=== PATIENT | female | born 1980 | race Caucasian/White ===

== ENCOUNTER → 2024-01-12 09:16 | Outpatient (REF) | payer OTHER, SELFPAY | LOC: HWRAD 09:16 | PROVIDERS: ATTENDING PHYSICIAN Internal Medicine Critical Care Medicine; FAMILY PHYSICIAN Family Medicine | DX: R09.89 Other specified symptoms and signs involving the circulatory and respiratory systems (principal) | CPT/HCPCS: 71275; Q9967 ==

== ENCOUNTER → 2024-03-26 14:53 | Outpatient (REF) | payer OTHER, SELFPAY | LOC: HWRAD 14:53 | PROVIDERS: ATTENDING PHYSICIAN Internal Medicine Critical Care Medicine; FAMILY PHYSICIAN Family Medicine | DX: R04.2 Hemoptysis (principal) | CPT/HCPCS: 71250 ==

== ENCOUNTER → 2024-12-15 13:21 | Outpatient (REF) | payer OTHER, SELFPAY | LOC: HWRAD 13:21 | PROVIDERS: ATTENDING PHYSICIAN Family Medicine; REFERRING PHYSICIAN Internal Medicine Critical Care Medicine | DX: R05.9 Cough, unspecified (principal) | CPT/HCPCS: 71046 ==

== ENCOUNTER → 2025-03-24 08:53 | Outpatient (REF) | payer OTHER, SELFPAY | LOC: HWRAD 08:53 | PROVIDERS: ATTENDING PHYSICIAN Internal Medicine Critical Care Medicine; FAMILY PHYSICIAN Family Medicine | DX: R91.1 Solitary pulmonary nodule (principal) | CPT/HCPCS: 71250 ==

== ENCOUNTER 2025-10-27 13:11 | Emergency (ER) | payer OTHER, SELFPAY ==
[2025-10-27] VITALS (8 sets, daily range): BP systolic 120–148; BP diastolic 76–94; BMI 30.1
[2025-10-27 13:47] LABS: Hematocrit 37.1 % (37.0-47.0); Hemoglobin 12.3 g/dL (12.0-16.0); Mean Corp Hgb Conc. 33.2 g/dL (33.0-37.0); Mean Corpuscular Volume 76.0 fL (81.0-99.0); Nucleated Red Blood Cells % 0 %; Platelet Count 227 10^3/uL (130-400); Red Cell Dist. Width 12.4 % (11.5-14.5)
[2025-10-27 13:59] LABS: HCG, Serum Qualitative Screen Negative
[2025-10-27 14:08] LABS: ALT (SGPT) 85 U/L (0-35); AST (SGOT) 45 U/L (14-36); Albumin 4.0 g/dl (3.5-5.0); Alkaline Phosphatase 55 U/L (38-126); Blood Urea Nitrogen 15 mg/dl (7-17); Calcium 9.0 mg/dl (8.4-10.2); Carbon Dioxide 22 mmol/L (22-30); Chloride 107 mmol/L (98-107); Glucose 117 mg/dl (70-99); Potassium 4.0 mmol/L (3.5-5.1); Sodium 136 mmol/L (135-145); Total Protein 6.9 g/dl (6.3-8.2); eGFR > 60.00
[2025-10-27 14:14] LABS: Troponin I < 0.012 ng/ml
[2025-10-27 14:30] LABS: TSH < 0.02 uIU/ml (0.47-4.68)
--- NOTE | 2025-10-27 15:57 | ED.GENMED ---
History of Present Illness
<Marianne Vo PA-C - Last Filed: 10/27/25 22:42>
General
Chief Complaint: Heart Rate Problem
Source: patient
Exam Limitations: none
Time Seen by Provider: 10/27/25 15:37
History of Present Illness
History of Present Illness:
45yoF with a history of PCOS, remote history of Graves' disease, and prothrombin gene mutation presenting for evaluation of ongoing headaches. Patient reports daily headaches over the past 3 weeks. Pain is located behind her right eye. Pain seems
to be worse at nighttime and she is also waking up in the morning with these headaches. She also reports intermittent sharp stabbing pains in her right jaw. She started to feel jittery yesterday as well. She has tried Tylenol, ibuprofen, wearing
a mouthguard, and increasing her water intake without any relief. Headache is currently rated as a 5/10 in severity. Patient was seen by her PCP today in the office. She was found to be tachycardic with heart rate in the 120s. She was sent to
the ED for concern for possible temporal arteritis. Patient denies any double vision or eye pain. She saw her retina specialist last month and had a normal dilated eye exam. She states it was hard to see the street signs yesterday while she was
driving but was previously told by her eye doctor that she needed reading glasses on top of her contact lenses.
Patient has a remote history of migraines in her 20s and was on Imitrex for about a year but has not had any issues with headaches since then. She was treated for Graves' disease symptoms in 2018 but medications were stopped after all her labs
normalized. She no longer sees an surgical instrument maker.
Phy Exam
<Marianne Vo PA-C - Last Filed: 10/27/25 22:42>
General Physical Exam
General Presentation: well appearing and no apparent distress
General Skin: warm and dry
General Habitus: normal
General Mental: alert
ENT Exam
ENT Exam: TM's normal, pharynx normal, neck supple and normocephalic
Additional ENT: No meningismus
Eye Exam
Eye Exam: PERRL, EOMI and conjunctiva normal
Cardiovascular Exam
Cardiovascular Exam: tachycardia
Pulmonary Exam
Pulmonary Exam: no respiratory distress
Neurological Exam
Neurological Exam: alert, no motor deficits and speech normal
Jitendra Coma Scale
Eye Opening: Spontaneous
Verbal Response: Oriented
Motor Response: Obeys Commands
GCS Total Score: 15
Skin Exam
Skin Exam: normal color and warm/dry
Psychiatric Exam
Psychiatric Exam: normal mood/affect
Course
<Marianne Vo PA-C - Last Filed: 10/27/25 22:42>
Orders/Labs/Results
Orders:
Orders
10/27/25 13:12
EKG [Electrocardiogram (*1)] Urgent
Reason for Study: Tachycardia
EKG- Treatment ONCE
10/27/25 13:27
Test Result ONCE
10/27/25 13:36
Complete Blood Count/With Diff Urgent
Comprehensive Metabolic Panel Urgent
Free T3 Urgent
Comment: ADD ON
Free T4 Urgent
Comment: ADD ON
HCG, Serum Qualitative Screen Urgent
Comment: Notify provider if positive test present
Sed Rate [Erythrocyte Sed Rate] Urgent
TSH Urgent
Troponin I Urgent
10/27/25 15:38
Add On- LAB Urgent
Tests Added?: free T3, free T4
Cardiac Monitoring- Treatment ONCE
10/27/25 16:24
CT Head W/o Iv Contrast Urgent
Comment:
Reason For Exam: new daily headache x 3 weeks
10/27/25 19:12
Methimazole [Tapazole] 10 mg PO NOW STA
Propranolol [Inderal] 20 mg PO NOW STA
Abnormal Lab Results
10/27/25
13:36
MCV 76.0 L fL
(81.0-99.0)
MCH 25.2 L pg
(27.0-31.0)
MPV 10.6 H fL
(7.4-10.4)
Absolute Monos (auto) 0.9 H 10^3/uL
(0.1-0.6)
Monocytes % 14.6 H %
(1.7-9.3)
Glucose 117 H mg/dl
(70-99)
AST 45 H U/L
(14-36)
ALT 85 H U/L
(0-35)
TSH < 0.02 L uIU/ml
(0.47-4.68)
Free T4 5.45 H ng/dl
(0.78-2.19)
Free T3 16.20 H pg/ml
(2.77-5.27)
10/27/25 13:36
10/27/25 13:36
Vital Signs
Initial and Last Documented VS:
Initial Vital Signs
Temp Pulse Resp BP Pulse Ox
98.2 F 122 16 131/94 96
10/27/25 13:19 10/27/25 13:19 10/27/25 13:19 10/27/25 13:19 10/27/25 13:19
Last Documented Vital Signs
Temp Pulse Resp BP Pulse Ox
98.5 F 128 14 130/92 97
10/27/25 15:46 10/27/25 19:30 10/27/25 19:00 10/27/25 19:30 10/27/25 18:45
Theresalt;Aron Vuong DO - Last Filed: 10/27/25 17:54>
Orders/Labs/Results
Orders:
Orders
10/27/25 13:12
EKG [Electrocardiogram (*1)] Urgent
Reason for Study: Tachycardia
EKG- Treatment ONCE
10/27/25 13:27
Test Result ONCE
10/27/25 13:36
Complete Blood Count/With Diff Urgent
Comprehensive Metabolic Panel Urgent
Free T3 Urgent
Comment: ADD ON
Free T4 Urgent
Comment: ADD ON
HCG, Serum Qualitative Screen Urgent
Comment: Notify provider if positive test present
Sed Rate [Erythrocyte Sed Rate] Urgent
TSH Urgent
Troponin I Urgent
10/27/25 15:38
Add On- LAB Urgent
Tests Added?: free T3, free T4
Cardiac Monitoring- Treatment ONCE
10/27/25 16:24
CT Head W/o Iv Contrast Urgent
Comment:
Reason For Exam: new daily headache x 3 weeks
10/27/25 19:12
Methimazole [Tapazole] 10 mg PO NOW STA
Propranolol [Inderal] 20 mg PO NOW STA
Abnormal Lab Results
10/27/25
13:36
MCV 76.0 L fL
(81.0-99.0)
MCH 25.2 L pg
(27.0-31.0)
MPV 10.6 H fL
(7.4-10.4)
Absolute Monos (auto) 0.9 H 10^3/uL
(0.1-0.6)
Monocytes % 14.6 H %
(1.7-9.3)
Glucose 117 H mg/dl
(70-99)
AST 45 H U/L
(14-36)
ALT 85 H U/L
(0-35)
TSH < 0.02 L uIU/ml
(0.47-4.68)
Free T4 5.45 H ng/dl
(0.78-2.19)
Free T3 16.20 H pg/ml
(2.77-5.27)
10/27/25 13:36
10/27/25 13:36
Vital Signs
Initial and Last Documented VS:
Initial Vital Signs
Temp Pulse Resp BP Pulse Ox
98.2 F 122 16 131/94 96
10/27/25 13:19 10/27/25 13:19 10/27/25 13:19 10/27/25 13:19 10/27/25 13:19
Last Documented Vital Signs
Temp Pulse Resp BP Pulse Ox
98.5 F 128 14 130/92 97
10/27/25 15:46 10/27/25 19:30 10/27/25 19:00 10/27/25 19:30 10/27/25 18:45
<Marianne Vo PA-C - Last Filed: 10/27/25 22:42>
MDM/Problems Addressed
Differential Diagnosis Includes:
45yoF presenting from PCP's office for new onset headaches x 3 weeks. Also noted to be tachycardic at her PCP appointment and feeling jittery. HR 122 in triage. Remainder of vitals normal. Patient well-appearing in no distress. Exam otherwise
reassuring. No meningismus or focal neurologic deficits. Differential diagnosis includes but is not limited to: Migraine, tension headache, intracranial mass, symptomatic hyperthyroidism, doubt temporal arteritis given age
Initial ED plan: Workup initiated in triage. TSH is less than 0.02. Remainder of labs unremarkable. ESR normal essentially ruling out temporal arteritis. EKG shows sinus tachycardia. Will check free T4/free T3 and head CT. Patient declined
analgesics.
<Marianne Vo PA-C - Last Filed: 10/27/25 22:42>
*Pulse Oximetry
SaO2: 97
Oxygen Mode of Delivery: Room air
Patient hypoxic: no
*EKG
Interpreted by ED Provider?: Yes
EKG Intrepretation Date: 10/27/25
Heart Rate: 124
Rate: tachycardiac
Rhythm: sinus
[place]: normal axis
Interval: normal interval
QRS Pattern: normal QRS
Ischemia: no ischemia
*Critical Care Note
Total Time (30-74mins, 75-104mins- exclusive of procedures): Not Applicable
<Marianne Vo PA-C - Last Filed: 10/27/25 22:42>
Update Note
Update Note:
Both free T4 and free T3 are significantly elevated. Head CT negative for acute findings. Patient persistently tachycardic with heart rates in the 120s throughout ED stay. BP and temperature is normal. No clinical signs of thyroid storm. Case
discussed with on-call surgical instrument maker who recommends initiating methimazole 10mg BID and a beta nik if needed. Given degree of tachycardia, she was also started on propranolol 20mg TID which may also help with her headaches. She was
instructed to follow-up closely with her PCP and endocrinology. Strict ED return precautions reviewed and she was discharged stable condition.
ED Attending Note
<Marianne Vo PA-C - Last Filed: 10/27/25 22:42>
-
Portions of this chart may have been created with voice recognition software.� Occasional wrong word or��sound alike� substitutions may have occurred due to the inherent limitations of voice recognition software.
<Aron Vuong DO - Last Filed: 10/27/25 17:54>
ED Attending Note
Patient seen and examined by attending physician: Yes
I performed the substantive portion of visit, reviewed & personally made and approve the management plan that is documented in note by myself or SELINA.: Yes
ED Attending Note:
I agree with Lisbeth's note.
45-year-old female presents complaining of headaches primarily. Patient has been having headaches for the past 3 weeks. Headache is frontal in nature. She has also been feeling somewhat jittery. She has a history of Graves' disease for which she
took medication in 2017 2018. Her labs improved and ultimately endocrinology decided to discontinue treatment. Her thyroid functions evidently remain normal and she was discharged from endocrinology. Patient denies any focal weakness numbness or
tingling. She denies any visual changes. She denies any nausea or vomiting.
Patient was noted to be quite tachycardic in triage.
General: Awake, Alert, Oriented X3. No acute distress.
Vitals: unremarkable
Head: Atraumatic
Eyes: Pupils equal, EOMI
Throat: Airway intact, no exudates
Neck: Trachea midline
Lungs: Clear and equal b/l
Heart: Tachycardic regular rate, no murmurs
Neuro: Nonfocal
Skin: Warm, dry, no rash
Extremities: pulses equal b/l, no edema
TSH is undetectable. T3 and T4 are quite high. Patient certainly meets criteria for hyperthyroidism. 90 will discuss specific dosages of propranolol and methimazole with endocrinology.
Discharge Plan
Departure
Patient Disposition: Home (Routine Discharge)
Date of Disposition: 10/27/25
Time of Disposition: 18:45
Patient with high blood pressure during this ER visit?: No
Discharge Problem:
New persistent daily headache, Hyperthyroidism
Instructions: Hyperthyroidism (overactive thyroid)
Prescriptions:
New
methimazole 10 mg tablet
10 mg PO BID Qty: 60 0RF
propranolol 20 mg tablet
20 mg PO TID 14 Days Qty: 42 0RF
No Action
omeprazole 20 mg Capsule,Delayed Release(Dr/Ec)
20 mg PO DAILY
aspirin 81 mg Tablet
81 mg PO DAILY
metformin 1,000 mg Tablet Extended Release 24 Hr
1,500 mg PO DAILY
Women's Daily Multivitamin 18-0.4 mg Tablet
1 tab PO DAILY
Zyrtec
10 mg PO DAILY
famotidine 10 mg Tablet
10 mg PO DAILY
Wegovy 2.4 mg/0.75 mL Pen Injector
2.4 mg SC QWEEK
Referrals:
Nusrat Navarro DO [Family Provider, Family Practice]
Leslie Leija MD [Consulting Staff, Endocrinology]
Abraham Herrera MD [Active, Neurology]
Activity Restrictions/Additional Instructions:
Take methimazole and propranolol as prescribed. Please call tomorrow to schedule follow-up appointments with your family doctor and endocrinology.
When you call the endocrinology office, tell them that you need to be seen soon and to speak with Dr. Leija.
Contact information for neurology also provided below.
Return to the ER with any new or worsening symptoms.
Interventions
Interventions:
*Risk Screen - Suicide Last Done: 10/27/25 13:19
*General Assessment Last Done: 10/27/25 15:46
*Neglect/Abuse Screening Last Done: 10/27/25 13:19
*ED COVID-19 Vaccine History Last Done: 10/27/25 15:46
*ED Influenza Vaccine History Last Done: 10/27/25 15:46
[facility] Risk Assessment Tool Last Done: 10/27/25 15:46
*Nursing Disposition Last Done: 10/27/25 19:38
ED- Cardiac Assessment Last Done: 10/27/25 15:46
ED- Pulmonary Assessment Last Done: 10/27/25 15:46
Discharge Date and Time
Print Language: NEPALI
[2025-10-27 16:28] LABS: Free T3 16.20 pg/ml (2.77-5.27)
[2025-10-27] MEDS: INDERAL 20 MG PO (19:30)
[2025-10-27] MEDS: TAPAZOLE 10 MG PO (19:30)
== END 2025-10-27 19:38 | disposition home or self-care (01) ==
LOC: EMR 13:11
PROVIDERS: Emergency Medicine; EMERGENCY PHYSICIAN Emergency Medicine; FAMILY PHYSICIAN Family Medicine
DX: G44.52 New daily persistent headache (NDPH) (principal); E05.90 Thyrotoxicosis, unspecified without thyrotoxic crisis or storm; R00.0 Tachycardia, unspecified; D68.52 Prothrombin gene mutation; E28.2 Polycystic ovarian syndrome; Z79.82 Long term (current) use of aspirin
CPT/HCPCS: 99284; 70450; 80053; 84439; 84443; 84481; 84484; 84703; 85025; 85652; 93005